=== PATIENT | male | born 1930 | race Caucasian/White ===

== ENCOUNTER → 2017-01-24 | Outpatient (CLI) | payer MEDICARE ==
[~2017-01-24] MED LIST: ALPHAGAN P5 M1 OD; ASA CHILDREN'S81 MG PO; COREG DPS12.5 MG PO; CRESTOR10 MG PO; PEPCID DPS20 MG PO; PLAVIX75 MG PO; TIMOPTIC 0.5% DP5 ML OD; XALATAN2.5 ML OD; ZESTRIL2.5 MG PO
== END | disposition home or self-care (01) ==
LOC: RAD.S 09:40
DX: R91.8 Other nonspecific abnormal finding of lung field (principal); R59.9 Enlarged lymph nodes, unspecified

== ENCOUNTER 2017-02-04 06:27 | Day surgery (SDC) | payer MEDICARE ==
[~2017-02-04] VITALS: Ht 177.8 cm; Wt 69.1 kg
[2017-08-04] MEDS ORDERED: PEPCID DPS20 MG PO (14:13)
[2017-08-04] MEDS ORDERED: COREG DPS12.5 MG PO (14:13)
[2017-08-04] MEDS ORDERED: CRESTOR10 MG PO (14:13)
[2017-08-04] MEDS ORDERED: ASA CHILDREN'S81 MG PO (14:13)
[2017-08-04] MEDS ORDERED: PLAVIX75 MG PO (14:14)
[2017-08-04] MEDS ORDERED: ZESTRIL2.5 MG PO (14:14)
[2017-08-04] MEDS ORDERED: ALPHAGAN P5 M1 OD (14:14)
[2017-08-04] MEDS ORDERED: XALATAN2.5 ML OD (14:15)
[2017-08-04] MEDS ORDERED: TIMOPTIC 0.5% DP5 ML OD (14:15)
== END 2017-02-04 10:46 | disposition home or self-care (01) ==
LOC: RAD.S 06:27 → EDSTATUS 08:00 → RAD.S 08:00
PROC: 0BBJ3ZX Excision of Left Lower Lung Lobe, Percutaneous Approach, Diagnostic (ICD-10-PCS; principal; 2017-02-04)
DX: C78.02 Secondary malignant neoplasm of left lung (principal); C61 Malignant neoplasm of prostate; Z79.899 Other long term (current) drug therapy; Z79.82 Long term (current) use of aspirin

== ENCOUNTER → 2017-07-22 | Outpatient (CLI) | payer MEDICARE | END | disposition home or self-care (01) | LOC: RAD.S 07-15 16:16 | DX: R13.10 Dysphagia, unspecified (principal); K44.9 Diaphragmatic hernia without obstruction or gangrene; K22.8 Other specified diseases of esophagus ==